=== PATIENT | male | born 2000 | race Caucasian/White ===

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

== ENCOUNTER 2019-06-04 07:10 | Emergency (ER) | payer OTHER ==
[2019-06-04 07:28] VITALS: BP 107/66
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
== END 2019-06-04 08:45 | disposition home or self-care (01) ==
LOC: UCCORT 07:10
DX: S63.501A Unspecified sprain of right wrist, initial encounter (principal); F17.290 Nicotine dependence, other tobacco product, uncomplicated; W01.0XXA Fall on same level from slipping, tripping and stumbling without subsequent striking against object, initial encounter; Y92.414 Local residential or business street as the place of occurrence of the external cause
CPT/HCPCS: 99202; G0463